=== PATIENT | male | born 1935 | race Caucasian/White ===

== ENCOUNTER 2022-12-25 09:18 | Emergency (ER) | payer MEDICARE, OTHER ==
[2022-12-25 10:41] LABS: CARBON DIOXIDE,CO2 29.9 mmol/L (21.0-32.0); POTASSIUM,K 4.3 mmol/L (3.5-5.1)
[2022-12-25 17:54] VITALS: BP 145/95; PULSE 78
== END 2022-12-25 11:41 | disposition home or self-care (01) ==
LOC: MW.ED 09:18
DX: R33.9 Retention of urine, unspecified (principal); I25.10 Atherosclerotic heart disease of native coronary artery without angina pectoris; I10 Essential (primary) hypertension; I25.2 Old myocardial infarction; K21.9 Gastro-esophageal reflux disease without esophagitis; E03.9 Hypothyroidism, unspecified; Z79.82 Long term (current) use of aspirin; Z79.899 Other long term (current) drug therapy
CPT/HCPCS: 36415; 51702; 80053; 81001; 85025; 99283

== ENCOUNTER 2022-12-27 13:06 | Emergency (ER) | payer MEDICARE, OTHER ==
[2022-12-27] MEDS ORDERED: Sodium Chloride 0.9% 10 ML Syringe FLUSH PRN (13:40)
[2022-12-27] MEDS ORDERED: Sodium Chloride 0.9% 1,000 ML IV ONE (13:40)
[2022-12-27] MEDS ORDERED: Sodium Chloride 0.9% 2.5 ML Syringe FLUSH PRN (13:40)
[2022-12-27 14:29] LABS: POTASSIUM,K 4.2 mmol/L (3.5-5.1)
[2022-12-27] MEDS ORDERED: cefTRIAXone 1 GM in Sodium Chloride 0.9% 50 ML IV ONE (15:29)
[2022-12-27 17:01] VITALS: BP 141/82; PULSE 96
== END 2022-12-27 17:00 | disposition home or self-care (01) ==
LOC: MW.ED 13:06
DX: N39.0 Urinary tract infection, site not specified (principal); I44.7 Left bundle-branch block, unspecified; I25.10 Atherosclerotic heart disease of native coronary artery without angina pectoris; I10 Essential (primary) hypertension; K21.9 Gastro-esophageal reflux disease without esophagitis; I25.2 Old myocardial infarction; E03.9 Hypothyroidism, unspecified; Z79.82 Long term (current) use of aspirin; Z79.899 Other long term (current) drug therapy
CPT/HCPCS: 36415; 71045; 80053; 81001; 83605; 85025; 87086; 87088; 87186; 96361; 96365; 99285; J0696; J3490; J7030; J7050; 93010; 99283

== ENCOUNTER 2022-12-31 10:31 | Emergency (ER) | payer MEDICARE, OTHER ==
[2022-12-31] MEDS ORDERED: Sodium Chloride 0.9% 1,000 ML IV ONE (15:15)
[2022-12-31 17:13] VITALS: BP 133/55; PULSE 66
== END 2022-12-31 17:05 | disposition home or self-care (01) ==
LOC: MW.ED 10:31
DX: Z46.6 Encounter for fitting and adjustment of urinary device (principal); I25.10 Atherosclerotic heart disease of native coronary artery without angina pectoris; E78.00 Pure hypercholesterolemia, unspecified; I10 Essential (primary) hypertension; I25.2 Old myocardial infarction; K21.9 Gastro-esophageal reflux disease without esophagitis; E03.9 Hypothyroidism, unspecified; Z79.82 Long term (current) use of aspirin; Z79.899 Other long term (current) drug therapy; Z86.16 Personal history of COVID-19
CPT/HCPCS: 96360; 99283; J7030